=== PATIENT | female | born 1965 | race African-American/Black ===

== ENCOUNTER 2016-10-18 09:56 | Inpatient (IN) | payer MEDICAID ==
[~2016-10-18] VITALS: Ht 172.7 cm; Wt 111.1 kg
[2016-10-18 10:00] VITALS: BP_SYST 143
[2016-10-18] MEDS ORDERED: NACL 0.9% 1,000 ML IV ONE (10:25)
[2016-10-18] MEDS ORDERED: KETOROLAC TROMETHAMINE 30 MG VIAL IVP ONE (10:45)
[2016-10-18 11:14] LABS: CALCIUM 7.9 mg/dL (8.4-11.0); CREATININE 0.61 mg/dL (0.55-1.30); POTASSIUM 3.4 mmol/L (3.5-5.1)
[2016-10-18 11:18] LABS: INR 1.4 (0.8-1.2); PROTHROMBIN TIME 15.2 SECS (9.5-12.5)
[2016-10-18 11:19] LABS: BASOPHILS % (AUTO) 0.3 % (0.0-2.0); EOSINOPHILS # (AUTO) 0.2 K/uL (0.0-0.4); HEMATOCRIT 26.4 % (36-48); LYMPHOCYTES # (AUTO) 1.3 K/uL (1.0-5.5); LYMPHOCYTES % (AUTO) 33.7 % (20.5-51.5); MEAN CORPUSCULAR HEMOGLOBIN 25 pg (27-31); MEAN CORPUSCULAR HGB CONC 30 % (32-36); MEAN CORPUSCULAR VOLUME 81 fL (79.0-98.0); MONOCYTES # (AUTO) 0.4 K/uL (0.0-1.0); NEUTROPHILS # (AUTO) 1.9 K/uL (1.8-7.7); RED BLOOD CELL COUNT(AUTO) 3.24 MIL/uL (4.2-6.2); TOTAL BILIRUBIN 0.6 mg/dL (0.0-1.0); TOTAL PROTEIN, SERUM 9.1 g/dL (6.4-8.3); WHITE BLOOD COUNT (AUTO) 3.9 K/uL (4.8-10.8)
[2016-10-18 11:33] LABS: PLATELET COUNT (AUTO) 201 K/uL (130-430)
[2016-10-18 11:34] LABS: BILIRUBIN,URINE NEGATIVE (NEGATIVE); BLOOD, URINE NEGATIVE (NEGATIVE); CLARITY/URINE CLEAR (CLEAR); COLOR,URINE YELLOW (YELLOW); GLUCOSE,URINE NEGATIVE (NEGATIVE); KETONES,URINE NEGATIVE (NEGATIVE); LEUKOCYTE ESTERASE ,URINE NEGATIVE (NEGATIVE); NITRITE, URINE NEGATIVE (NEGATIVE); PROTEIN URINE NEGATIVE (NEGATIVE); UROBILINOGEN,URINE 0.2 (0.2-1.0)
[2016-10-18] MEDS ORDERED: DEXTROSE 50% JECT 50 ML DISP.SYRIN IVP ONE (12:00)
[2016-10-18] MEDS ORDERED: NORCO (12:16)
[2016-10-18] MEDS ORDERED: VICODIN (12:16)
[2016-10-18] MEDS ORDERED: LOTENSIN (12:16)
[2016-10-18 13:02] VITALS: BP_SYST 162
[2016-10-18] MEDS ORDERED: FURO-150 PO (13:38)
[2016-10-18] MEDS ORDERED: FERR-57 PO (13:38)
[2016-10-18] MEDS ORDERED: ONDANSETRON HCL 4 MG/2 ML VIAL IVP PRN (14:15)
[2016-10-18] MEDS ORDERED: ACETAMINOPHEN 325 MG TABLET PO PRN (14:15)
[2016-10-18] MEDS ORDERED: POTASSIUM CHLORIDE 20 MEQ/PKT PACKET PO ONE (14:30)
[2016-10-18] MEDS: FUROSEMIDE 40 MG TABLET PO SCH (14:45)
[2016-10-18] MEDS ORDERED: LORazepam 1 MG TABLET PO PRN (14:45)
[2016-10-18] MEDS: DOCUSATE SODIUM 250 MG CAPSULE PO SCH ×2 (15:00→22:26)
[2016-10-18 15:05] LABS: IRON (SERUM) 25 mcg/dL (37-145); TOTAL IRON BIND. CAPACITY 256 ug/dL (250-450)
[2016-10-18 15:43] LABS: BARBITURATE, URINE NEGATIVE (NEG <=200); BENZODIAZEPINE, URINE NEGATIVE (NEG <=150); CANNABINOID, URINE NEGATIVE (NEG <=50); COCAINE, URINE NEGATIVE (NEG <=150); METHAMPHETAMINES SCREEN,URINE NEGATIVE (NEG <=500); OPIATE, URINE NEGATIVE (NEG <=100); PHENCYCLIDINE SCREEN,URINE NEGATIVE (NEG <=25); UR TRICYCLIC ANTIDEPRESSANTS NEGATIVE (NEG <=300); URINE AMPHETAMINE NEGATIVE (NEG <=500); URINE METHADONE NEGATIVE (NEG <=200); URINE OXYCODONE SCREEN NEGATIVE (NEG <=100); URINE PROPOXYPHENE SCREEN NEGATIVE (NEG <=300)
[2016-10-18] MEDS: HYDROcodone/ACETAMIN 10-325 MG TAB PO PRN ×2 (16:01→22:27)
[2016-10-18 16:45] VITALS: BP_SYST 160
[2016-10-18 19:40] VITALS: BP_SYST 137
[2016-10-18] MEDS: POTASSIUM CHLORIDE 20 MEQ TAB.PRT.SR PO SCH (22:25)
[2016-10-19] VITALS (8 sets, daily range): BP systolic 142–170
[2016-10-19] MEDS: cloNIDine HCL 0.2 MG TABLET PO PRN ×2 (00:14→10:51)
[2016-10-19 06:50] LABS: CALCIUM 7.9 mg/dL (8.4-11.0); CREATININE 0.6 mg/dL (0.55-1.30); POTASSIUM 3.7 mmol/L (3.5-5.1)
[2016-10-19 07:00] LABS: HEMOGLOBIN 8.2 g/dL (12.0-16.0); MEAN CORPUSCULAR HEMOGLOBIN 25 pg (27-31); MEAN CORPUSCULAR HGB CONC 31 % (32-36); MEAN CORPUSCULAR VOLUME 81 fL (79.0-98.0); RED BLOOD CELL COUNT(AUTO) 3.33 MIL/uL (4.2-6.2); RED CELL DISTRIBUTION WIDTH 21.7 % (9.0-15.0); WHITE BLOOD COUNT (AUTO) 4.8 K/uL (4.8-10.8)
[2016-10-19 07:11] LABS: PLATELET COUNT (AUTO) 173 K/uL (130-430)
[2016-10-19 07:40] LABS: BASOPHILS % (MANUAL) 0 % (0-2); EOSINOPHILS % (MANUAL) 2 % (0-7); LYMPHOCYTES % (MANUAL) 34 % (20-46); MONOCYTES % (MANUAL) 4 % (0-11)
[2016-10-19] MEDS: DOCUSATE SODIUM 250 MG CAPSULE PO SCH ×3 (08:40→21:00)
[2016-10-19] MEDS: POTASSIUM CHLORIDE 20 MEQ TAB.PRT.SR PO SCH ×2 (08:40→21:00)
[2016-10-19] MEDS: FUROSEMIDE 40 MG TABLET PO SCH (08:41)
[2016-10-19] MEDS: BALSAM PERU/CASTOR OIL 60 GM OINT...G. TP SCH (08:42)
[2016-10-19] MEDS: HYDROcodone/ACETAMIN 10-325 MG TAB PO PRN ×2 (08:42→14:46)
[2016-10-19] MEDS ORDERED: LOSARTAN/HYDROCHLOROTHIAZIDE TAB (HYZAAR 50-12.5 MG) PO SCH (12:00)
[2016-10-19] MEDS ORDERED: HYDROCHLOROTHIAZIDE 25 MG TABLET (HCTZ) PO ONE (12:30)
[2016-10-19] MEDS ORDERED: HYDROCHLOROTHIAZIDE 12.5 MG CAPSULE (HCTZ) PO ONE (12:30)
[2016-10-19] MEDS ORDERED: LOSARTAN POTASSIUM 50 MG TABLET (COZAAR) PO ONE ×2 (12:30)
[2016-10-19] MEDS ORDERED: SOD FERRIC GLUC COMPLEX/SUC 125 MG in NS 100 ML IV SCH (17:00)
[2016-10-19] MEDS: HYDROcodone/ACETAMIN 5-325 MG TAB (NORCO/ VICODIN) PO PRN (18:22)
[2016-10-19] MEDS: MULTIVITAMINS TAB 1 TABLET PO SCH (21:07)
[2016-10-20] MEDS: HYDROcodone/ACETAMIN 10-325 MG TAB PO PRN ×2 (00:09→08:41)
[2016-10-20] MEDS: cloNIDine HCL 0.2 MG TABLET PO PRN (00:09)
[2016-10-20 00:55] VITALS: BP_SYST 162
[2016-10-20 04:37] VITALS: BP_SYST 124
[2016-10-20 07:44] VITALS: BP_SYST 129
[2016-10-20] MEDS: FUROSEMIDE 40 MG TABLET PO SCH (08:39)
[2016-10-20] MEDS: POTASSIUM CHLORIDE 20 MEQ TAB.PRT.SR PO SCH (08:39)
[2016-10-20] MEDS: MULTIVITAMINS TAB 1 TABLET PO SCH (08:40)
[2016-10-20] MEDS: DOCUSATE SODIUM 250 MG CAPSULE PO SCH (08:41)
[2016-10-20] MEDS: BALSAM PERU/CASTOR OIL 60 GM OINT...G. TP SCH (08:42)
[2016-10-20] MEDS ORDERED: HYDROCHLOROTHIAZIDE 25 MG TABLET (HCTZ) PO SCH (09:00)
[2016-10-20] MEDS ORDERED: LOSARTAN POTASSIUM 50 MG TABLET (COZAAR) PO SCH (09:00)
[2016-10-20 10:48] LABS: HEMATOCRIT 27.7 % (36-48); HEMOGLOBIN 8.6 g/dL (12.0-16.0); MEAN CORPUSCULAR HEMOGLOBIN 25 pg (27-31); MEAN CORPUSCULAR HGB CONC 31 % (32-36); MEAN CORPUSCULAR VOLUME 80 fL (79.0-98.0); RED BLOOD CELL COUNT(AUTO) 3.46 MIL/uL (4.2-6.2); RED CELL DISTRIBUTION WIDTH 22.3 % (9.0-15.0); WHITE BLOOD COUNT (AUTO) 5.4 K/uL (4.8-10.8)
[2016-10-20 10:58] LABS: INR 1.5 (0.8-1.2); PROTHROMBIN TIME 16.5 SECS (9.5-12.5)
[2016-10-20 11:04] LABS: PLATELET COUNT (AUTO) 212 K/uL (130-430)
[2016-10-20 11:12] LABS: CALCIUM 8.2 mg/dL (8.4-11.0); CREATININE 0.67 mg/dL (0.55-1.30); POTASSIUM 3.1 mmol/L (3.5-5.1)
[2016-10-20 11:17] LABS: BASOPHILS % (MANUAL) 0 % (0-2); EOSINOPHILS % (MANUAL) 5 % (0-7); LYMPHOCYTES % (MANUAL) 31 % (20-46); MONOCYTES % (MANUAL) 5 % (0-11)
[2016-10-20] MEDS: HYDROcodone/ACETAMIN 5-325 MG TAB (NORCO/ VICODIN) PO PRN (11:53)
[2016-10-20 12:04] VITALS: BP_SYST 116
[2016-10-20] MEDS ORDERED: POTASSIUM CHLORIDE 20 MEQ TAB.PRT.SR PO ONE (12:15)
[2016-10-20 12:50] VITALS: BP_SYST 135
[2016-10-20 14:50] VITALS: BP_SYST 116
[2016-10-20] MEDS ORDERED: ceFAZolin SODIUM 1 GM in D5W 50 ML IV SCH (22:00)
== END 2016-10-20 15:38 | disposition short-term general hospital (02) | DRG 383 ==
LOC: SED 09:56 → SMU 11:59
PROVIDERS: ADMIT Internal Medicine; ATTEND Internal Medicine
DX: L03.116 Cellulitis of left lower limb (principal); E43 Unspecified severe protein-calorie malnutrition; G92 Toxic encephalopathy; I10 Essential (primary) hypertension; E87.6 Hypokalemia; D64.9 Anemia, unspecified; E66.9 Obesity, unspecified; G89.4 Chronic pain syndrome; M79.604 Pain in right leg; L03.115 Cellulitis of right lower limb; M79.605 Pain in left leg; Z98.51 Tubal ligation status; Z98.891 History of uterine scar from previous surgery; Z79.899 Other long term (current) drug therapy; Z99.3 Dependence on wheelchair; Z59.0 Homelessness; Z87.891 Personal history of nicotine dependence; Z68.37 Body mass index [BMI] 37.0-37.9, adult
CPT/HCPCS: 36415; 71010; 72170-TC; 73552; 80048; 80053; 80307; 81003; 82150-TC; 82607; 82746; 83540-TC; 83550-TC; 83690-TC; 83735-TC; 83880; 84703; 85007; 85025; 85027; 85610-TC; 85730-TC; 87040-TC; 87070-TC; 87081; 93005; 93306; 96361; 96374; 96375; 99285; J0690; J1885; J2916; J7030; J7060

== ENCOUNTER 2016-12-03 08:15 | Inpatient (IN) | payer MEDICAID ==
[2016-12-03] VITALS (7 sets, daily range): BP systolic 115–157; BP diastolic 67–105; PULSE 55–132; RESP 16–20; TEMP 97.9–100.5; O2SAT 93–99
[~2016-12-03] VITALS: Ht 172.7 cm; Wt 112.9 kg
[~2016-12-03 08:15] MED LIST: FERR-57 PO; FURO-150 PO; LOTENSIN; NORCO; VICODIN
--- NOTE | 2016-12-03 08:15 | NUR ---
Arrived via BLS ambulance with compliant of left calf/ankle swelling. Patient is poorly able to articulate her compliant, states she is having pain and needs morphine. States that she was seen at [facility] last night and they did nothing other than give her a shower. Placed in room 6 . Placed on diamond sander, blood pressure machine and pulse oximeter. To gown for exam. Side rails up. Report given to Elvira MARCANO.
--- NOTE | 2016-12-03 08:25 | NUR ---
DR JIMENEZ AT BEDSIDE FOR EVALUATION
[2016-12-03] MEDS ORDERED: NACL 0.9% 1,000 ML IV SCH (08:27)
[2016-12-03] MEDS ORDERED: MORPHINE 4 MG/ML INJ. SYRINGE IVP ONE (08:30)
[2016-12-03] MEDS ORDERED: ONDANSETRON HCL 4 MG/2 ML VIAL IVP ONE (08:30)
[2016-12-03] MEDS ORDERED: cefTRIAXone 1 GM IVPB PREMIX 50 ML IV ONE (08:45)
[2016-12-03] MEDS ORDERED: VANCOMYCIN HCL 1,000 MG in NS 250 ML IV ONE (08:45)
[2016-12-03 09:24] LABS: HEMATOCRIT 31.5 % (36-48); HEMOGLOBIN 9.9 g/dL (12.0-16.0); MEAN CORPUSCULAR HEMOGLOBIN 27 pg (27-31); MEAN CORPUSCULAR HGB CONC 32 % (32-36); MEAN CORPUSCULAR VOLUME 86 fL (79.0-98.0); PLATELET COUNT (AUTO) 466 K/uL (130-430); RED BLOOD CELL COUNT(AUTO) 3.65 MIL/uL (4.2-6.2); RED CELL DISTRIBUTION WIDTH 24.5 % (9.0-15.0); WHITE BLOOD COUNT (AUTO) 6.9 K/uL (4.8-10.8)
--- NOTE | 2016-12-03 09:25 | NUR ---
ULTRASOUND BEING DONE AT BEDSIDE, TRIPP AND DR BLUNT AT BEDSIDE
[2016-12-03 09:38] LABS: CALCIUM 9.5 mg/dL (8.4-11.0); CREATININE 0.62 mg/dL (0.55-1.30); POTASSIUM 4.2 mmol/L (3.5-5.1)
--- NOTE | 2016-12-03 09:40 | NUR ---
MULTIPLE ATTEMPTS BY MULTIPLE NURSES AND ALL UNABLE TO START IV LINE.
[2016-12-03 09:41] LABS: INR 1.4 (0.8-1.2); PROTHROMBIN TIME 14.9 SECS (9.5-12.5)
[2016-12-03 09:43] LABS: ALBUMIN 2.9 g/dL (3.4-4.8); TOTAL BILIRUBIN 1.1 mg/dL (0.0-1.0)
[2016-12-03 10:09] LABS: ATYPICAL LYMPHOCYTES % 0 % (0-0); BAND % (MANUAL) 2 % (0-6); BASOPHILS % (MANUAL) 0 % (0-2); EOSINOPHILS % (MANUAL) 0 % (0-7); LYMPHOCYTES % (MANUAL) 23 % (20-46); MONOCYTES % (MANUAL) 8 % (0-11)
--- NOTE | 2016-12-03 10:20 | NUR ---
PT GIVEN REGULAR DIET. ATE 100% AND ASKING FOR ANOTHER TRAY OF FOOD
[2016-12-03] MEDS ORDERED: NACL 0.9% 1,000 ML IV ONE ×2 (10:45)
[2016-12-03] MEDS ORDERED: NS 500 ML IV ONE (10:45)
[2016-12-03] MEDS ORDERED: VANCOMYCIN HCL 1000 MG/VIAL IV ONE (11:03)
--- NOTE | 2016-12-03 11:05 | NUR ---
DR COTE GAVE ADMITTING ORDERS
[2016-12-03] MEDS ORDERED: ACETAMINOPHEN 500 MG TABLET PO ONE (11:30)
--- NOTE | 2016-12-03 11:33 | NUR ---
ADMISSION NOTE Received patient from ER via gurney. Patient admitted with diagnosis of LEFT LOWER EXTREMITY CELLULITIS. Patient is awake, alert, oriented X 4. Patient oriented to hospital room, call light, toileting, pain management and safety-teach back done. Patient informed that JOHN will be RN nurse and that their room number is 118B. Personal belongings checked and Belongings List documented. Call light within reach.
[2016-12-03] MEDS ORDERED: ACETAMINOPHEN 500 MG TABLET ONE (11:39)
--- NOTE | 2016-12-03 11:39 | NUR ---
Patient will be admitted to care of DR COTE. Admitted to TELE unit. Will go to room 135. Belongings list completed. Summary report printed. Report will be given at bedside.
[2016-12-03] MEDS ORDERED: FLU VACC QS 2017-18(36MOS+)/PF 0.5 ML/SYR SYRINGE I.M. PRN (12:00)
--- NOTE | 2016-12-03 12:30 | NUR ---
NOTE REC'D PT FROM ADMIT KRYS BELTRAN AT 1220PM. PT RESTING IN BED. PT HAS IV IN LEFT UPPER ARM AT THIS TIME. IVPB ANTIBIOTIC INFUSING WELL THROUGH AT THIS TIME. NO SOB/RESP DISTRESS OR SEVERE PAIN/DISCOMFORT NOTED. PT'S LEFT LOWER EXTREMITY HAS SEVERE SWELLING AND TENDER TO TOUCH. ADMISSION ASSESSMENT BEING COMPLETED AT THIS TIME. ORIENTED TO ROOM AND NURSING ROUTINES/PROCEDURES. QUESTIONS/CONCERNS ANSWERED AT THIS TIME. CALL LIGHT WITHIN REACH.
[2016-12-03] MEDS ORDERED: MORPHINE 2 MG/ML INJ. SYRINGE IVP PRN ×2 (12:45→13:15)
[2016-12-03] MEDS ORDERED: POTASSIUM CHLORIDE 10 MEQ TAB.PRT.SR PO PRN (13:15)
[2016-12-03] MEDS ORDERED: DOCUSATE SODIUM 100 MG CAPSULE PO PRN (13:15)
[2016-12-03] MEDS ORDERED: MAGNESIUM SULFATE 50 ML IV PRN (13:15)
[2016-12-03] MEDS ORDERED: IPRATROPIUM/ALBUTEROL SULFATE 3 ML AMPUL.NEB INH PRN (13:15)
[2016-12-03] MEDS ORDERED: ACETAMINOPHEN 325 MG TABLET PO PRN (13:15)
--- NOTE | 2016-12-03 13:22 | NUR ---
CONSULT ID CELLULITIS SEPSIS DR VAZQUEZ [phone] S/W LEON THOMPSON @ [id number]
--- NOTE | 2016-12-03 13:29 | NUR ---
CONSULT PULMONOLOGY SEVERE HYPOXIA DR DU [phone] S/W JOANNA THOMPSON @ [phone]
[2016-12-03] MEDS ORDERED: METOPROLOL TARTRATE 50 MG TABLET PO ONE (13:45)
[2016-12-03] MEDS: MORPHINE 2 MG/ML INJ. SYRINGE IVP PRN ×2 (14:41→20:46)
--- NOTE | 2016-12-03 15:00 | NUR ---
NOTE DR DU CAME TO FLOOR AT 1400, ASSESSMENT WAS COMPLETED AND ORDERS WRITTEN. PT WAS GIVEN PAIN IVP MEDICATION AT THIS TIME REQUESTED. NO SOB/RESP DISTRESS NOTED. IVF'S INFUSING WELL THROUGH LEFT UPPER ARM IV SITE. MO - LANGUAGE SPECIALIST WAS NOTIFIED TO CALL PICC RN FOR PLACEMENT OF PICC ON PT. CALL WAS PLACED TO PICC RN AGENCY BY LANGUAGE SPECIALIST. PT RESTING IN BED AT THIS TIME. NO NEEDS NOTED AT THIS TIME. CALL LIGHT WITHIN REACH.
--- NOTE | 2016-12-03 17:00 | NUR ---
NOTE PT RESTING IN BED WATCHING TELEVISION. IVF'S INFUSING WELL THROUGH LEFT UPPER ARM IV SITE AT THIS TIME. CALL LIGHT WITHIN REACH.
--- NOTE | 2016-12-03 18:15 | NUR ---
NOTE PT LYING ON HER LEFT SIDE AND EATING HER DINNER. IVF'S THROUGH LEFT UPPER ARM IV SITE INFUSING WELL AT THIS TIME. NO SOB/RESP DISTRESS NOTED. PAIN TOLERABLE AT THIS TIME. TELE UNIT ATTACHED AND INTACT AT THIS TIME. NO NEEDS NOTED. CALL LIGHT WITHIN REACH.
[2016-12-03] MEDS: FERROUS SULFATE 325 MG TABLET.DR PO SCH (20:51)
[2016-12-03] MEDS: ZOLPIDEM TARTRATE 5 MG TABLET PO PRN (20:52)
[2016-12-03] MEDS: METOPROLOL TARTRATE 50 MG TABLET PO SCH (20:52)
[2016-12-03] MEDS: ONDANSETRON HCL 4 MG/2 ML VIAL IVP PRN (20:59)
[2016-12-03] MEDS: HEPARIN SODIUM,PORCINE 5000 UNITS/ML VIAL SUBCUT SCH (21:04)
[2016-12-03] MEDS: DIPHENHYDRAMINE HCL 25 MG CAPSULE PO PRN (21:22)
[2016-12-04] MEDS: MORPHINE 2 MG/ML INJ. SYRINGE IVP PRN ×4 (01:34→19:18)
[2016-12-04] MEDS: DIPHENHYDRAMINE HCL 25 MG CAPSULE PO PRN ×4 (01:43→20:36)
[2016-12-04 02:30] VITALS: TEMP 98.8
[2016-12-04 03:45] VITALS: BP 128/73; PULSE 104; RESP 20; TEMP 98.7; O2SAT 95
--- NOTE | 2016-12-04 06:40 | NUR ---
pt.presented challenges;pt.presents lower extremity weakness/cellulitis;pt.has c/o pain:lower extremities/back.i have administered morphine;2mg ivp x2.pt.has stated the morphine is efficatious.pt.has c/o nausea;i have administered zofran;4mg ivp x2 w/in the shift.pt.stated pt.had c/o itch sensation. was paged.i apprised of the pt's symptomology ordered benadryl;25mg po q-6hrs/prn.i have administered the medication x2.pt.has stated relief of the itch.pt.was bathed reposition q-2hrs.iv access located in the lt.antecubital region.pt.has requestd snacks.snacks have been provided.pt.presents room air:o2 sat%=98% call light placed w/in the pt's reach.
[2016-12-04 07:10] LABS: BASOPHILS % (AUTO) 0.5 % (0.0-2.0); EOSINOPHILS # (AUTO) 0.1 K/uL (0.0-0.4); EOSINOPHILS % (AUTO) 1.5 % (0.0-4.0); HEMATOCRIT 27.2 % (36-48); HEMOGLOBIN 8.8 g/dL (12.0-16.0); LYMPHOCYTES # (AUTO) 2.3 K/uL (1.0-5.5); LYMPHOCYTES % (AUTO) 31.1 % (20.5-51.5); MEAN CORPUSCULAR HEMOGLOBIN 28 pg (27-31); MEAN CORPUSCULAR HGB CONC 32 % (32-36); MEAN CORPUSCULAR VOLUME 87 fL (79.0-98.0); MONOCYTES # (AUTO) 1.1 K/uL (0.0-1.0); MONOCYTES % (AUTO) 15.2 % (1.7-9.3); NEUTROPHILS % (AUTO) 51.7 % (40.0-70.0); PLATELET COUNT (AUTO) 396 K/uL (130-430); RED BLOOD CELL COUNT(AUTO) 3.12 MIL/uL (4.2-6.2); RED CELL DISTRIBUTION WIDTH 24.7 % (9.0-15.0); WHITE BLOOD COUNT (AUTO) 7.5 K/uL (4.8-10.8)
[2016-12-04 07:15] LABS: CALCIUM 8.6 mg/dL (8.4-11.0); CREATININE 0.59 mg/dL (0.55-1.30); POTASSIUM 3.4 mmol/L (3.5-5.1)
[2016-12-04 07:59] VITALS: BP 160/99; PULSE 114; RESP 20; TEMP 98.5; O2SAT 96
--- NOTE | 2016-12-04 08:00 | NUR ---
NOTE PT WAS SEEN AND ASSESSED BY DR COTE AT THIS TIME. QUESTIONS/CONCERNS WERE ADDRESSED AT THIS TIME. TELE UNIT INTACT AND ATTACHED AT THIS TIME. LEFT UPPER ARM IV INTACT AND PATENT AT THIS TIME. NO SOB/RESP DISTRESS OR SEVERE LOWER EXTREMITIES PAIN NOTED. CALL LIGHT WITHIN REACH.
--- NOTE | 2016-12-04 08:26 | NUR ---
Nutrition Update Lyle Scale 12 noted. Pt admitted for L lower extremity cellulitis. Diet: regular BMI: 38 kg/m2 RD to follow per nutrition care standards.
[2016-12-04] MEDS: FERROUS SULFATE 325 MG TABLET.DR PO SCH ×2 (08:41→20:36)
[2016-12-04] MEDS: FUROSEMIDE 20 MG TABLET PO SCH (08:42)
[2016-12-04] MEDS: METOPROLOL TARTRATE 50 MG TABLET PO SCH ×2 (08:42→20:37)
[2016-12-04] MEDS: HEPARIN SODIUM,PORCINE 5000 UNITS/ML VIAL SUBCUT SCH ×2 (08:47→20:40)
--- NOTE | 2016-12-04 08:56 | NUR ---
CONSULTATION PAGED REASON FOR CONSULTATION:SINUS TACHYCARDIA WAS CONSULT CALLED?:Y PERSON WHO WAS NOTIFIED:FELIX CONSULTING PHYSICIAN:NAVEEN BALDWIN DEPARTMENT CHAIRPERSON SPECIALTY:CARDIO DEPARTMENT CHAIRPERSON PHONE NUMBER:[phone] REQUESTING PHYSICIAN:BRANDON CRAIN
--- NOTE | 2016-12-04 10:30 | NUR ---
NOTE DR CASILLAS (CARDIOLOGY) CALLED AND REQUESTED THAT TELE UNIT BE KEPT IN PLACE AT THIS TIME. PT HAD HER 2D ECHO AT BEDSIDE AT 0930 AND AND RIGHT UPPER ARM PICC PLACED AT 1015AM. PT RESTING IN BED. DENIES ANY NEEDS AT THIS TIME. CALL LIGHT WITHIN REACH.
--- NOTE | 2016-12-04 12:17 | NUR ---
DISCHARGE PLANNING DC order for SNF placement. Met with patient at bedside regarding discharge planning to SNF. Patient agreeable with discharge plan and requested placement near [facility]. Patient was presented with contracted facility brochures to [facility], [facility], [facility], and [facility]. Meanwhile; faxed SNF referral to [facility] [phone] [facility] [phone] [facility] [phone] [facility] [phone]. Will follow up. Addendum: 12/04/16 at 1431 by Shwetha Lee DP Spoke with Americo in admitting at [facility] patient accepted assigned to room 109B RN to report [phone], bed available anytime. KRYS Quispe made aware. Pending discharge order.
[2016-12-04 12:30] VITALS: BP 137/91; PULSE 111; RESP 19; TEMP 99; O2SAT 93
--- NOTE | 2016-12-04 12:30 | NUR ---
NOTE PT RESTING IN BED WATCHING TELEVISION AT THIS TIME. PT JUST REC'D HER LUNCH TRAY AND IS LYING ON HER LEFT SIDE TO EAT. REFUSES TO RAISE HOB MORE THAN 30' AT THIS TIME, STATES HER BACK IS HURTS TOO MUCH. CALL LIGHT WITHIN REACH.
--- NOTE | 2016-12-04 13:20 | NUR ---
NOTE PT HAVING HER US OF LOWER EXTREMITIES AT BEDSIDE AT THIS TIME. PT IS INCONTINENT IN BED AND REFUSES TO LET HYGIENE CARE OR BATH BE GIVEN AT THIS TIME. STATES SHE DOES NOT WANT ONE. RN TRYING TO ENCOURAGE PT TO LET BATH AND HYGIENE CARE BE GIVEN TO PREVENT INFECTIONS AND FOR HEALING OF LOWER EXTREMITY CELLULITIS SITES. CALL LIGHT WITHIN REACH.
[2016-12-04] MEDS: ceFAZolin SODIUM 1 GM in D5W 50 ML IV SCH ×2 (14:58→21:37)
--- NOTE | 2016-12-04 16:10 | NUR ---
NOTE PT HAS BEEN IN AND OUT OF SLEEP AND NO NEEDS NOTED AT THIS TIME. RIGHT PICC IS SALINE LOCKED AT THIS TIME. NO SOB/RESP DISTRESS OR PAIN/DISCOMFORT NOTED AT THIS TIME. NO NEEDS NOTED AT THIS TIME. CALL LIGHT WITHIN REACH.
[2016-12-04 16:25] VITALS: BP 143/87; PULSE 115; RESP 18; TEMP 99; O2SAT 97
--- NOTE | 2016-12-04 17:10 | NUR ---
NOTE DR COTE WAS CALLED AND NOTIFIED THAT DR CASILLAS CAME TO FLOOR AND ASSESSED PT AND PT MAY BE DISCHARGED FROM CARDIOLOGY POINT OF VIEW.
--- NOTE | 2016-12-04 18:10 | NUR ---
NOTE PT RESTING IN BED. RIGHT UPPER ARM PICC INTACT AND PATENT AT THIS TIME. SALINE LOCKED. NO SOB/RESP DISTRESS OR SEVERE PAIN IN LOWER EXTREMITIES NOTED AT THIS TIME. PT EATING HER DINNER AND WATCHING TELEVISION. PT STABLE AT THIS TIME. TELE UNIT ATTACHED AND INTACT. PT WAS MAINTAINED WITH SAFETY PRECAUTIONS ALL SHIFT. NO NEEDS NOTED. CALL LIGHT WITHIN REACH.
--- NOTE | 2016-12-04 19:39 | NUR ---
Initial PM Notes Pt was received lying in bed fully AAO X3. Speech is clear and pt is able to make her needs known. HONG PICC is saline locked with the dressing dry and intact. Fall and safety precautions are in place. Pt was instructed to call for assistance as needed and pt verbalized understand. Three side rails are up, call light is with pt and bed is in the lowest and locked positions. Bed alarm is on. Will continue to monitor pt.
[2016-12-04 20:00] VITALS: BP 132/77; PULSE 116; RESP 20; TEMP 98.4; O2SAT 96
--- NOTE | 2016-12-04 20:36 | NUR ---
Itching Benadryl 25mg was given po per pt's request for c/o generalized itching with relief.
[2016-12-04] MEDS: ZOLPIDEM TARTRATE 5 MG TABLET PO PRN (21:38)
--- NOTE | 2016-12-04 21:38 | NUR ---
Insomnia Ambien 10mg was given po per pt's request for c/o insomnia.
[2016-12-04] MEDS: ONDANSETRON HCL 4 MG/2 ML VIAL IVP PRN (21:47)
--- NOTE | 2016-12-04 21:47 | NUR ---
Nausea Zofran 4mg was given IV per pt's request for c/o insomnia with good effect. No emesis noted.
--- NOTE | 2016-12-04 22:30 | NUR ---
Rounds Pt is resting quietly in bed. No c/o pain or discomfort at this time. Call light is with pt and bed alarm is on. Will continue to monitor pt.
--- NOTE | 2016-12-05 | NUR ---
Rounds Pt is sleeping quietly in bed without any distress noted. Call light is with pt and bed alarm is on. Three side rails are up and bed is in the lowest and locked positions. child monitor is showing ST with HR in the low 100's.
[2016-12-05 00:07] VITALS: BP 136/80; PULSE 90; RESP 18; TEMP 99.1; O2SAT 94
[2016-12-05] MEDS: MORPHINE 2 MG/ML INJ. SYRINGE IVP PRN ×4 (02:07→22:34)
--- NOTE | 2016-12-05 02:07 | NUR ---
Pain Morphine 2mg was given IV per pt's request for c/o pain in both legs with relief.
[2016-12-05] MEDS: DIPHENHYDRAMINE HCL 25 MG CAPSULE PO PRN ×3 (03:44→16:28)
--- NOTE | 2016-12-05 03:44 | NUR ---
Itching Benadryl 25mg was given po per pt's request for c/o generalized itching with some relief.
[2016-12-05 04:51] VITALS: BP 145/89; PULSE 104; RESP 19; TEMP 99.4; O2SAT 96
--- NOTE | 2016-12-05 05:00 | NUR ---
Rounds Pt is sleeping comfortably in bed. No respiratory distress noted. Call light is with pt and bed alarm is on.
[2016-12-05] MEDS: ceFAZolin SODIUM 1 GM in D5W 50 ML IV SCH ×3 (06:05→21:51)
--- NOTE | 2016-12-05 06:14 | NUR ---
Pain Morphine 2mg was given IV per pt's request for c/o pain in both legs with relief.
[2016-12-05 06:33] LABS: BASOPHILS % (AUTO) 0.2 % (0.0-2.0); EOSINOPHILS # (AUTO) 0.4 K/uL (0.0-0.4); EOSINOPHILS % (AUTO) 5.4 % (0.0-4.0); HEMATOCRIT 27.9 % (36-48); HEMOGLOBIN 8.9 g/dL (12.0-16.0); LYMPHOCYTES # (AUTO) 2.8 K/uL (1.0-5.5); LYMPHOCYTES % (AUTO) 33.5 % (20.5-51.5); MEAN CORPUSCULAR HEMOGLOBIN 28 pg (27-31); MEAN CORPUSCULAR HGB CONC 32 % (32-36); MEAN CORPUSCULAR VOLUME 88 fL (79.0-98.0); MONOCYTES # (AUTO) 1.1 K/uL (0.0-1.0); MONOCYTES % (AUTO) 13.2 % (1.7-9.3); NEUTROPHILS # (AUTO) 3.9 K/uL (1.8-7.7); PLATELET COUNT (AUTO) 311 K/uL (130-430); RED BLOOD CELL COUNT(AUTO) 3.17 MIL/uL (4.2-6.2); RED CELL DISTRIBUTION WIDTH 24.2 % (9.0-15.0); WHITE BLOOD COUNT (AUTO) 8.2 K/uL (4.8-10.8)
[2016-12-05 06:51] LABS: CALCIUM 8.4 mg/dL (8.4-11.0); CREATININE 0.5 mg/dL (0.55-1.30); POTASSIUM 3.7 mmol/L (3.5-5.1)
--- NOTE | 2016-12-05 07:15 | NUR ---
Closing Note Pt is awake and resting quietly in bed. No c/o pain or discomfort. All pt's needs were attended to. No fall or injury noted this shift. Bedside report was given to day shift nurse.
[2016-12-05 07:37] LABS: NEUTROPHILS % (AUTO) 47.7 % (40.0-70.0)
[2016-12-05 08:02] VITALS: BP 147/94; PULSE 116; RESP 20; TEMP 98.9; O2SAT 96
--- NOTE | 2016-12-05 08:07 | NUR ---
Opening note Pt found in bed eating breakfast, ALOCx 4, no s/s of SOB, complains of severe pain but understands next morphine cannot be administered yet, then asked for benedryl with morning medications. Pt reoriented to call light and verbally agreed to call for assistance. Bed and safety precautions reviewed with bed left in lowest position and call light within reach, pt refused bed alarm at this time.
[2016-12-05] MEDS: FERROUS SULFATE 325 MG TABLET.DR PO SCH ×2 (08:40→21:51)
[2016-12-05] MEDS: FUROSEMIDE 20 MG TABLET PO SCH (08:41)
[2016-12-05] MEDS: METOPROLOL TARTRATE 50 MG TABLET PO SCH ×2 (08:41→21:51)
[2016-12-05] MEDS: HEPARIN SODIUM,PORCINE 5000 UNITS/ML VIAL SUBCUT SCH ×2 (08:43→21:54)
[2016-12-05] MEDS ORDERED: MAGNESIUM SULFATE 4 GM in D5W 250 ML IV ONE (09:45)
--- NOTE | 2016-12-05 10:00 | NUR ---
DISCHARGE PLANNING DC order to SNF. Patient assigned to room 109B at [facility] RN to report [phone]. KRYS Garcia made aware. Called contracted ambulance [facility] [phone] spoke with Diya arranged BLS transport garbage pick up man 2pm. Placed transport packet in nurse station. Addendum: 12/05/16 at 1401 by Shwetha VALENZUELA Due to pending insurance auth called [facility] ambulance placed BLS transport on will call. ESTELA Fajardo speak with insurance CM for facility auth. Addendum: 12/05/16 at 1507 by Shwetha VALENZUELA Called insurance ESTELA Fajardo [phone] left voice message requesting return call back. Called [facility] spoke with Renita in admitting who stated pending insurance auth. Renita stated bed available for patient unable to transfer till insurance auth is received. KRYS Nye was updated.
--- NOTE | 2016-12-05 10:09 | NUR ---
Pharmacy call Asked pharmacy to verify Magnesium sulfate so can begin infusion elizabet for discharge later today.
--- NOTE | 2016-12-05 10:25 | NUR ---
Rounding note/Medicine administration Pt has c/o pain 09/16, otherwise no s/s of SOB or complaints. Educated about medications. Reviewed safety and fall precautions. Bed left in lowest position, with call light with in reach and bed alarm on. Will reassess pain.
--- NOTE | 2016-12-05 11:15 | NUR ---
Pharmacy Call Called re magnesium sulfate, they haven't mixed it yet. Told them her discharge is pending administration.
--- NOTE | 2016-12-05 11:43 | NUR ---
Rounding note Pt found resting in bed watching TV, no s/s of SOB or c/o pain or discomfort at this time. Educated about PICC line and purpose in continuing IV antibiotics post discharge at a SNF. Pt expressed satisfaction with planned afternoon discharge. Bed remains in lowest position, with call light within reach and pt verbalizes that she will call for assistance.
[2016-12-05 12:06] VITALS: BP 139/96; PULSE 103; RESP 18; TEMP 99; O2SAT 98
--- NOTE | 2016-12-05 12:46 | NUR ---
Wound Care Completed wound care with KRYS Danielsspecialist wound care nurse, pictures taken. Changed bed linens and gown.
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
--- NOTE | 2016-12-05 13:25 | NUR ---
Rounding notes Pt resting in bed with no s/s of SOB or complaints of pain, does report mild discomfort because of condition of skin. Reminded of safety precautions and bed left in lowest position with call light within reach and bed alarm on.
[2016-12-05 13:28] VITALS: BP 139/96; PULSE 103; RESP 18; TEMP 99; O2SAT 98
[2016-12-05 14:41] VITALS: Ht 172.7 cm; Wt 112.9 kg
--- NOTE | 2016-12-05 14:53 | NUR ---
Dietitian Recommendations * Recommend continuing regular diet per LP, RD Please refer to Nutrition Assessment for details.
--- NOTE | 2016-12-05 15:08 | NUR ---
NATI PLANNING Received call from pt's nurse Parris that when trying to give report for transfer to SNF that they stated still waiting on auth. I called & [facility], Tana ph [phone]. Per Tana she has been waiting for PT eval notes. Informed no PT eval done, states she will speak w her SNF Md to see if can get auth for SNF IV abx then return my call. Called Dr Yen & got order for PT eval. Updated nati Tadeo meeting planner. No call back from Tana called her & left her msg @ around 1445.
--- NOTE | 2016-12-05 15:22 | NUR ---
Rounding notes Pt resting in bed with no s/s of SOB or complaints of pain, does report mild discomfort because of condition of skin. Reminded of safety precautions and bed left in lowest position with call light within reach and bed alarm on. Addendum: 12/05/16 at 1524 by Mague Montana RN should have been entered for 1325 Addendum: 12/05/16 at 1526 by Mague Montana RN Pt complains of sever pain in legs and skin on LLE. Medication given , will reassess.
[2016-12-05 16:32] VITALS: BP 150/92; PULSE 99; RESP 18; TEMP 99.4; O2SAT 96
[2016-12-05] MEDS: LORazepam 2 MG/ML VIAL IVP PRN (17:08)
--- NOTE | 2016-12-05 17:20 | NUR ---
Rounding note/medicine administration Pt was c/o of anxiety, administered medication. Pt continues to c/o discomfort but shows no s/s of SOB or distress. Reviewed medications and safety procedures, bed in lowest position, bed alarm on and call light within reach.
--- NOTE | 2016-12-05 18:33 | NUR ---
Closing note Pt found sitting in bed eating dinner, no s/s of SOB, ALOCx 4, complains of pain on her skin and lower limbs, pain medicine cannot be administered at this time and informed pt of the timing for next administration. Pt is anticipating discharge tomorrow. I will give report and endorse care to NOC shift nurse. Safety precautions reviewed with pt and bed left in lowest position, with bed alarm on and call light within reach.
--- NOTE | 2016-12-05 19:50 | NUR ---
ROUNDS PATIENT RESTING COMFORTABLY IN BED, NOT IN DISTRESS, VITALS STABLE. DENIES ANY PAIN AND DISCOMFORT AT THIS TIME. ASSESSMENT DONE AND DOCUMENTED. SEE FLOWSHEET. NEEDS ATTENDED TO. SAFETY AND FALL PRECAUTION MEASURES IN PLACED. BED IN LOW AND LOCKED POSITION. BED ALARM ON. CALL LIGHT PLACED WITHIN REACH.
--- NOTE | 2016-12-05 21:15 | NUR ---
MEDICATION DUE MEDICATIONS GIVEN ORDERED, TOLERATED WELL. WILL CONTINUE TO MONITOR.
[2016-12-05] MEDS: ZOLPIDEM TARTRATE 5 MG TABLET PO PRN (21:50)
--- NOTE | 2016-12-06 | NUR ---
PATIENT RESTING: Patient resting quietly. No acute distress noted. Vital signs within normal range.
[2016-12-06] MEDS: LORazepam 2 MG/ML VIAL IVP PRN (00:30)
[2016-12-06 00:43] VITALS: BP 137/87; PULSE 91; RESP 18; TEMP 97.8; O2SAT 96
--- NOTE | 2016-12-06 02:01 | NUR ---
ROUNDS PATIENT ASLEEP, NO SOB NOTED, VITALS STABLE. WILL CONTINUE TO MONITOR.
[2016-12-06] MEDS: MORPHINE 2 MG/ML INJ. SYRINGE IVP PRN ×4 (04:16→18:39)
[2016-12-06 04:24] VITALS: BP 145/86; PULSE 90; RESP 18; TEMP 98.3; O2SAT 96
--- NOTE | 2016-12-06 04:30 | NUR ---
ROUNDS PATIENT STABLE, BED BATH GIVEN WITH COFFEE ROASTER HELPER ANALYN, NO PAIN AT THIS TIME. WILL CONTINUE TO MONITOR.
[2016-12-06] MEDS: ceFAZolin SODIUM 1 GM in D5W 50 ML IV SCH ×2 (04:56→14:34)
--- NOTE | 2016-12-06 06:33 | NUR ---
CLOSING NOTES PATIENT RESTING COMFORTABLY IN BED AT THIS TIME, VITALS STABLE, ALL NEEDS ATTENDED TO. SAFETY AND FALL PRECAUTION MEASURES MAINTAINED. BED IN LOW AND LOCKED POSITION. CALL LIGHT PLACED WITHIN REACH.
[2016-12-06 06:47] LABS: CALCIUM 8.7 mg/dL (8.4-11.0); CREATININE 0.46 mg/dL (0.55-1.30); POTASSIUM 3.6 mmol/L (3.5-5.1)
[2016-12-06 07:34] LABS: BASOPHILS % (AUTO) 0.5 % (0.0-2.0); EOSINOPHILS # (AUTO) 0.8 K/uL (0.0-0.4); EOSINOPHILS % (AUTO) 10.9 % (0.0-4.0); HEMATOCRIT 28.5 % (36-48); HEMOGLOBIN 8.9 g/dL (12.0-16.0); LYMPHOCYTES # (AUTO) 2.9 K/uL (1.0-5.5); LYMPHOCYTES % (AUTO) 37.9 % (20.5-51.5); MEAN CORPUSCULAR HEMOGLOBIN 28 pg (27-31); MEAN CORPUSCULAR HGB CONC 31 % (32-36); MEAN CORPUSCULAR VOLUME 89 fL (79.0-98.0); MONOCYTES # (AUTO) 0.9 K/uL (0.0-1.0); MONOCYTES % (AUTO) 12.6 % (1.7-9.3); NEUTROPHILS # (AUTO) 2.9 K/uL (1.8-7.7); NEUTROPHILS % (AUTO) 38.1 % (40.0-70.0); PLATELET COUNT (AUTO) 340 K/uL (130-430); RED BLOOD CELL COUNT(AUTO) 3.22 MIL/uL (4.2-6.2); RED CELL DISTRIBUTION WIDTH 24.5 % (9.0-15.0); WHITE BLOOD COUNT (AUTO) 7.5 K/uL (4.8-10.8)
--- NOTE | 2016-12-06 08:00 | NUR ---
AM Initial Notes Pt aaox3 with episodes of forgetfulness and mild confusion. Complaints of bilateral leg and lower back pain. No distress noted. Informed RN for medication administration. hall monitor in place. Right upper arm PICC, RN to assess. Edematous bilateral lower extremities but left leg appears more swollen. Tiny wounds and sever excoriations noted to buttocks, yaa area and bilateral lower extremities. Educated about fall and safety precautions. Bed alarm armed. Incontinent care done. Repositioned and kept comfortable. Call light within reach. Will monitor.
[2016-12-06 08:18] VITALS: BP 139/85; PULSE 108; RESP 20; TEMP 98.8; O2SAT 93
--- NOTE | 2016-12-06 08:56 | NUR ---
Nutrition Note Nutrition Consult (Wounds) received 12/05/161924. Pt was seen and assessed by RD on 12/05/16. Please refer to Nutrition Assessment for details.
--- NOTE | 2016-12-06 08:56 | NUR ---
DC Planning: CARA Fajardo [phone]. CM will f/u.
--- NOTE | 2016-12-06 09:10 | NUR ---
Physical therapy Pt trying to ambulate with therapist. Bilateral lower extremity weakness noted and pt screaming with pain.
[2016-12-06] MEDS: FERROUS SULFATE 325 MG TABLET.DR PO SCH (09:53)
[2016-12-06] MEDS: METOPROLOL TARTRATE 50 MG TABLET PO SCH (09:54)
[2016-12-06] MEDS: FUROSEMIDE 20 MG TABLET PO SCH (09:54)
[2016-12-06] MEDS: HEPARIN SODIUM,PORCINE 5000 UNITS/ML VIAL SUBCUT SCH (09:58)
[2016-12-06] MEDS: DIPHENHYDRAMINE HCL 25 MG CAPSULE PO PRN ×2 (10:33→16:29)
--- NOTE | 2016-12-06 11:30 | NUR ---
Rounds Pt asleep. No signs of facial grimacing for pain or discomfort. No distress noted. Will monitor.
--- NOTE | 2016-12-06 11:48 | NUR ---
DISCHARGE PLANNING Called and spoke with insurance ESTELA Fajardo at [facility] [phone]. Faxed requested PT notes [phone]. Tana will have director of medical review review for insurance auth for SNF placement at [facility]. DCP will follow up. ESTELA was updated. Addendum: 12/06/16 at 1555 by Shwetha Lee DP Spoke with Piedad at [facility] who stated insurance auth [id number] was approved for [facility] and was forwarded to facility. RN made aware. Spoke with Americo at [facility] patient assigned to room 108B RN to report [phone] bed available anytime. Called contracted [facility] ambulance [phone] spoke with Aline arranged S transport crop picker 6:30pm.
[2016-12-06 12:05] VITALS: BP 142/81; PULSE 87; RESP 16; TEMP 99.3; O2SAT 95
--- NOTE | 2016-12-06 13:50 | NUR ---
Pain Pt complaints of severe pain to lower back and bilateral lower extremities. Repositioned and kept comfortable. Will monitor.
--- NOTE | 2016-12-06 16:00 | NUR ---
Itching Pt complaints of very itchy skin and requests for Benadryl. Benadryl 25mg by mouth was administered.
[2016-12-06 16:58] VITALS: BP 139/80; PULSE 99; RESP 20; TEMP 99.3; O2SAT 97
--- NOTE | 2016-12-06 17:45 | NUR ---
[facility] Report was called to [facility] at and spoke with KRYS Mendez. Patient will be going to Room 109-B
[2016-12-06 18:15] VITALS: BP 139/80; PULSE 99; RESP 20; TEMP 99.3; O2SAT 97
[2016-12-06] MEDS ORDERED: DOXY100T2 PO (18:31)
--- NOTE | 2016-12-06 19:02 | NUR ---
Discharge Discharge patient with [facility] Ambulance. Transitional care instructions and handout packet given to EMT. Brief report report given to EMT. Vital signs stable. Pt leaving with PICC line to right upper arm. Wound care and dressing change done. Pictures also taken. Pt left floor via stretcher to ambulance vehicle. No distress noted.
== END 2016-12-06 19:02 | DRG 720 ==
LOC: SED 08:15 → STU 11:09
PROVIDERS: ADMIT General Practice; ATTEND General Practice
PROC: 02HV33Z Insertion of Infusion Device into Superior Vena Cava, Percutaneous Approach (ICD-10-PCS; principal; 2016-12-04)
PROC: B548ZZA Ultrasonography of Superior Vena Cava, Guidance (ICD-10-PCS; 2016-12-04)
DX: A41.9 Sepsis, unspecified organism (principal); J96.01 Acute respiratory failure with hypoxia; I47.2 Ventricular tachycardia; E44.0 Moderate protein-calorie malnutrition; E66.01 Morbid (severe) obesity due to excess calories; L03.115 Cellulitis of right lower limb; D63.8 Anemia in other chronic diseases classified elsewhere; L03.116 Cellulitis of left lower limb; R65.20 Severe sepsis without septic shock; E87.6 Hypokalemia; F11.20 Opioid dependence, uncomplicated; I49.3 Ventricular premature depolarization; J98.11 Atelectasis; I87.2 Venous insufficiency (chronic) (peripheral); G89.4 Chronic pain syndrome; I89.0 Lymphedema, not elsewhere classified; E83.42 Hypomagnesemia; I11.9 Hypertensive heart disease without heart failure; Z68.37 Body mass index [BMI] 37.0-37.9, adult; Z99.3 Dependence on wheelchair; Z79.899 Other long term (current) drug therapy; Z87.891 Personal history of nicotine dependence; Z59.0 Homelessness; Z80.3 Family history of malignant neoplasm of breast
CPT/HCPCS: 36415; 36600; 71010; 80048; 80053; 82803-TC; 83605; 83735-TC; 85007; 85025; 85027; 85610-TC; 85730-TC; 87040-TC; 93005; 93306; 93923; 93971; 94760; 96361; 96365; 96375; 97530-GP; 99291; C1751; J0690; J0696; J1644; J2060; J2270; J2405; J3370; J3475; J7030; J7050; J7060; Q0163; Q2037